=== PATIENT | female | born 1950 | race Caucasian/White ===

== ENCOUNTER → 2024-07-11 12:18 | Day surgery (SDC) | payer MEDICARE, BC, SELFPAY ==
[2024-07-07 16:18] VITALS: BMI 21.9
[2024-07-11 12:34] VITALS: BP 136/67; PULSE 88; RESP 20; TEMP 36.4; O2SAT 96
[2024-07-11] MEDS: PHENYLEPHRINE 2.5% OPHTH SOLN 2ML OP (12:38)
[2024-07-11] MEDS: APRACLONIDINE 0.5% OPHTH SOLN 5ML OP (12:38)
[2024-07-11] MEDS: TROPICAMIDE 1% OPTH SOLN 2ML OP (12:38)
[2024-07-11] MEDS: TETRACAINE 0.5% OPTH SOL 15ML OP (12:39)
== END | disposition home or self-care (01) ==
PROVIDERS: PCP Nurse Practitioner; Visit Provider Ophthalmology
PROC: (CPT 66821; principal; 2024-07-11 14:00)
DX: H26.493 Other secondary cataract, bilateral (principal)
CPT/HCPCS: 66821